=== PATIENT | female | born 1980 | race Caucasian/White ===

== ENCOUNTER 2023-07-09 10:29 | Outpatient (CLI) | payer BC | END 2023-07-09 10:30 | disposition home or self-care (01) | LOC: CSHRAD 10:29 | PROVIDERS: ATTEND Neurological Surgery | DX: M54.12 Radiculopathy, cervical region (principal); Z98.890 Other specified postprocedural states | CPT/HCPCS: 72040 ==

== ENCOUNTER 2024-06-15 13:34 | Outpatient (CLI) | payer BC, OTHER | END 2024-06-15 13:35 | disposition home or self-care (01) | LOC: CSHDTY/OP 13:34 | PROVIDERS: ATTEND Specialist | DX: E66.01 Morbid (severe) obesity due to excess calories (principal) | CPT/HCPCS: 97802 ==